=== PATIENT | male | born 1970 | race Caucasian/White ===

== ENCOUNTER → 2018-03-17 07:28 | Outpatient (CLI) | payer OTHER | END | disposition home or self-care (01) | LOC: D.CT 07:28 | DX: R10.31 Right lower quadrant pain (principal) ==

== ENCOUNTER 2018-09-23 06:55 | Day surgery (SDC) | payer BC ==
[~2018-09-23] VITALS: Ht 177.8 cm; Wt 72.6 kg
--- NOTE | ~2018-09-23 | OP ---
PATIENT NAME: CORINE PARKER MEDICAL RECORD: [id number] :66 LOCATION:[facility] AD[facility]ION DATE: SURGEON: JAH ARAGON MD DATE OF OPERATION: 09/23/2018 PREOPERATIVE DIAGNOSES: 1. Right inguinal hernia. 2. Tobacco dependence syndrome. POSTOPERATIVE DIAGNOSES: 1. Right inguinal hernia. 2. Tobacco dependence syndrome. PROCEDURE: Right inguinal hernia repair with medium PHS mesh. SURGEON: Jah Aragon MD SHIRRING MACHINE OPERATOR AUTOMATIC: Catherine Akins APRN REPORT OF PROCEDURE: The patient's right groin was prepped and draped in sterile fashion. An oblique incision was made above the inguinal ligament. Electrocautery was used to dissect through the subcutaneous tissue to the external oblique fascia. This fascia was opened up to the external ring using electrocautery. The ilioinguinal nerve was found and high ligated. A [place] was then placed around the spermatic cord. I inspected the area and there was noted to be a laxity to the inguinal floor consistent with a direct hernia defect. There was no sign of an indirect hernia defect. We opened up the inguinal floor and upon doing this, we injured a branch vein that was present. This was ligated proximally and distally to discontinue any bleeding. This was done with 3-0 silks. At this point, we opened up the preperitoneal space of Retzius and I inspected to assure there was no sign of a femoral hernia, which there was none. A medium PHS mesh was then inserted and sutured down on all 4 sides using interrupted 0 Vicryls. The wound was then irrigated out with normal saline. The external oblique fascia was closed with running 2-0 Vicryls, Kristi's was closed with interrupted 3-0 Vicryl and the skin was closed with running subcutaneous 5-0 Monocryl. The wound was then infused with 10 mL of 0.25% Marcaine with epinephrine and dressed appropriately. COMPLICATIONS: None. CONDITION: Stable. ANESTHESIA: General endotracheal and local. BLOOD LOSS: Minimal. TRANSINT:[id number] Voice Confirmation ID: [id number] DOCUMENT ID: [id number] OPERATIVE REPORT [id number] ELENACORINE CHRISTIAN MD at 1254 CC: JIMMY GARNICA [id number] DICTATION DATE: 09/23/18 1042 MORTARMAN: 09/23/18 1059 [facility] 09/23/18 [place] [id number] [facility], [facility]
[2018-09-23 08:34] VITALS: BP 112/61; Ht 177.8 cm; Wt 72.6 kg
[2018-09-23] MEDS ORDERED: NORCO 10-325 TA1 TAB PO (10:39)
== END 2018-09-23 13:50 | disposition home or self-care (01) ==
LOC: D.PAN 06:55 → D.OPS 09:30 → D.PAN 10:05 → D.OPS 10:30 → D.PAN 13:50
DX: K40.90 Unilateral inguinal hernia, without obstruction or gangrene, not specified as recurrent (principal); F17.200 Nicotine dependence, unspecified, uncomplicated; Z01.812 Encounter for preprocedural laboratory examination

== ENCOUNTER 2018-09-23 19:48 | Inpatient (IN) | payer BC ==
[~2018-09-23] VITALS: Ht 177.8 cm; Wt 72.7 kg
[~2018-09-23 19:48] MED LIST: NORCO 10-325 TA1 TAB PO
[2018-09-23 20:39] LABS: BASOPHILS 0 % (0-2); EOSINOPHILS 0 % (0-7); HEMATOCRIT 43.9 % (42.0-54.0); HEMOGLOBIN 14.9 g/dL (13.5-17.5); IMMATURE GRANULOCYTES 0.2 % (0-5); LYMPHOCYTES 6.3 % (15-50); MCHC 33.9 g/dL (31.0-37.0); MCV 91.3 fL (80.0-100.0); MEAN PLATELET VOLUME 11.2 fL (7.4-10.4); MONOCYTES 2.5 % (2-11); PLATELET COUNT 163 10x3/uL (130-400); RBC 4.81 10x6/uL (4.20-6.10); RDW 13.2 % (11.5-14.5); WBC 11.8 10x3/uL (4.8-10.8)
[2018-09-23 20:43] LABS: APTT 26.7 SECONDS (22.8-39.4); INR 1.03 (0.85-1.17)
[2018-09-23 21:04] LABS: ALBUMIN 3.7 g/dL (3.4-5.0); ALKALINE PHOSPHATASE 66 U/L (46-116); ALT (SGPT) 59 U/L (10-68); BILIRUBIN - TOTAL 0.44 mg/dL (0.2-1.3); CALC OSMOLALITY 277 mosm/kg (275-300); CALCIUM 8.3 mg/dL (8.5-10.1); CARBON DIOXIDE 26.2 mmol/L (21.0-32.0); CHLORIDE - SERUM 101 mmol/L (98-107); CREATININE - SERUM 1.1 mg/dL (0.6-1.3); GLUCOSE 154 mg/dL (74-106); PROTEIN - SERUM 7.4 g/dL (6.4-8.2); SODIUM 138 mmol/L (136-145); UREA NITROGEN 10 mg/dL (7-18); eGFR NON AFRICAN AMERICAN 75 mL/min (90-120)
[2018-09-23 21:50] LABS: APPEARANCE CLEAR (CLEAR); BILIRUBIN NEGATIVE (NEGATIVE); COLOR YELLOW (YELLOW); GLUCOSE NEGATIVE (NEGATIVE); KETONE NEGATIVE (NEGATIVE); NITRITE NEGATIVE (NEGATIVE); PROTEIN NEGATIVE (NEGATIVE); RED CELLS - URINE 0-5 /hpf (0-5); UROBILINOGEN NORMAL (NORMAL); WHITE CELLS - URINE OCC /hpf (0-5)
[2018-09-24 01:47] VITALS: BP 107/69; Ht 177.8 cm; Wt 72.7 kg
[2018-09-24 04:26] LABS: BASOPHILS 0.1 % (0-2); EOSINOPHILS 0 % (0-7); HEMATOCRIT 42.2 % (42.0-54.0); HEMOGLOBIN 14.1 g/dL (13.5-17.5); IMMATURE GRANULOCYTES 0.3 % (0-5); LYMPHOCYTES 17.7 % (15-50); MCH 30.4 pg (26.0-34.0); MCHC 33.4 g/dL (31.0-37.0); MCV 90.9 fL (80.0-100.0); MEAN PLATELET VOLUME 11.2 fL (7.4-10.4); MONOCYTES 6.5 % (2-11); NEUTROPHILS 75.4 % (40-80); PLATELET COUNT 168 10x3/uL (130-400); RBC 4.64 10x6/uL (4.20-6.10); RDW 13.3 % (11.5-14.5); WBC 12.2 10x3/uL (4.8-10.8)
[2018-09-24 04:51] LABS: CALCIUM 8.5 mg/dL (8.5-10.1); CARBON DIOXIDE 27.1 mmol/L (21.0-32.0); CHLORIDE - SERUM 102 mmol/L (98-107); GLUCOSE 138 mg/dL (74-106); SODIUM 139 mmol/L (136-145)
[2018-09-24 04:56] VITALS: BP 97/56
[2018-09-24 05:19] LABS: CALC OSMOLALITY 277 mosm/kg (275-300); CREATININE - SERUM 0.8 mg/dL (0.6-1.3); UREA NITROGEN 7 mg/dL (7-18); eGFR NON AFRICAN AMERICAN > 90 mL/min (90-120)
[2018-09-24 13:34] VITALS: BP 101/63
== END 2018-09-24 14:16 | disposition home or self-care (01) | DRG 921 ==
LOC: D.ER 19:48 → D.MS 23:44
PROVIDERS: Family Medicine
DX: L76.22 Postprocedural hemorrhage of skin and subcutaneous tissue following other procedure (principal); Y83.8 Other surgical procedures as the cause of abnormal reaction of the patient, or of later complication, without mention of misadventure at the time of the procedure; R33.9 Retention of urine, unspecified

== ENCOUNTER → 2019-02-02 11:03 | Outpatient (CLI) | payer BC ==
[2018-09-24 01:47] VITALS: BMI 23.0
== END | disposition home or self-care (01) ==
LOC: D.NM 11:03
PROVIDERS: ATTEND Internal Medicine Gastroenterology
DX: R10.9 Unspecified abdominal pain (principal); R14.0 Abdominal distension (gaseous)